=== PATIENT | male | born 1945 | race Caucasian/White ===

== ENCOUNTER 2019-12-15 01:08 | Observation (INO) | payer MEDICARE ==
[2019-12-15] MEDS ORDERED: methylPREDNISolone 125 MG* 2 ML VIAL IV ONE (01:17)
[2019-12-15] MEDS ORDERED: NS 0.9% 1000 ML** 1,000 ML IV ONE (01:17)
--- NOTE | 2019-12-15 01:21 | ED ---
Shortness of Breath - HPI Summary HPI Summary: 74-year-old male with a significant past medical history of COPD presents to the emergency Department today with chief complaint of influenza-like illness for the last 7 days with increased shortness of breath this evening. Patient states he has an oximeter at home and when he measured his oxygen saturation was evening it was approximately 82%. Patient has not taken any medication prior to arrival. Patient wears oxygen at home while sleeping at night. Patient was self diagnosed with influenza and has not taken Tamiflu. Patient is otherwise well and is alert and oriented 3 and resting comfortably on the hospital stretcher. Patient was given DuoNeb treatment by EMS. Patient otherwise feels well and denies current fever, abdominal pain, rash, nausea, vomiting, diarrhea, myalgia. - History of Current Complaint Chief Complaint: EDShortnessOfBreath Time Seen by Provider: 12/15/19 01:10 Hx Obtained From: Patient Onset/Duration: Gradual Onset Timing: Constant Current Severity: Moderate Alleviating Factors: Bronchodilators, EMS Tx, Oxygen, Upright Position Associated Signs & Symptoms: Cough (Productive) - Allergy/Home Medications Allergies/Adverse Reactions: Allergies Allergy/AdvReac Type Severity Reaction Status Date / Time No Known Allergies Allergy Verified 12/15/19 01:27 Home Medications: Home Medications Azithromycin 500 mg PO BID 12/15/19 [History Confirmed 12/15/19] PMH/Surg Hx/FS Hx/Imm Hx Infectious Disease History: No Infectious Disease History: Denies: Traveled Outside the [place] in Last 30 Days Review of Systems Positive: Fatigue Eyes: Negative ENT: Negative Cardiovascular: Negative Positive: Shortness Of Breath, Cough Gastrointestinal: Negative Genitourinary: Negative Positive: Myalgia Skin: Negative Neurological/Mental Status: Negative Psychological: Normal All Other Systems Reviewed And Are Negative: Yes Physical Exam Triage Information Reviewed: Yes Vital Signs On Initial Exam: Initial Vitals Temp Pulse Resp BP Pulse Ox 97.5 F 101 20 112/73 94 12/15/19 01:12 12/15/19 01:12 12/15/19 01:12 12/15/19 01:12 12/15/19 01:12 Vital Signs Reviewed: Yes Appearance: Positive: Well-Appearing, No Pain Distress, Well-Nourished Skin: Positive: Warm, Skin Color Reflects Adequate Perfusion Eyes: Positive: EOMI, JESUS ENT: Positive: Hearing grossly normal Respiratory/Lung Sounds: Positive: Breath Sounds Present, Decreased Breath Sounds, Wheezes Cardiovascular: Positive: RRR, S1, S2 Abdomen Description: Positive: Nontender, Soft Bowel Sounds: Positive: Present Musculoskeletal: Positive: Strength/ROM Intact Neurological: Positive: Sensory/Motor Intact, Alert, Oriented to Person Place, Time, Normal Gait, Facial Symmetry, Speech Normal Psychiatric: Positive: Normal, Affect/Mood Appropriate AVPU Assessment: Alert Procedures - Sedation Patient Received Moderate/Deep Sedation with Procedure: No Diagnostics - Vital Signs Vital Signs Temp Pulse Resp BP Pulse Ox 12/15/19 01:12 97.5 F 101 20 112/73 94 - Laboratory Result Diagrams: 12/15/19 01:25 12/15/19 01:25 Lab Statement: Any lab studies that have been ordered have been reviewed, and results considered in the medical decision making process. Course/Dx - Course Course Of Treatment: Patient was evaluated in the emergency department today for shortness of breath. Positive noted. Patient afebrile. EKG was done promptly which shows no evidence of STEMI. Sinus rhythm at a rate of 96 bpm. Normal axis. There is no T-wave inversion or evidence of ischemia. Normal MD and QTc interval. There are no priors available for comparison. Laboratory studies returned showing no leukocytosis with a white blood cell count of 5.2. CRP is elevated at 25.5. There are no electrolyte disturbances. Initial troponin resulted as 0.19. Hospitalist, Dr. Pate consulted at 0234 for admission the patient with a diagnosis of COPD exacerbation, pneumonia, elevated troponin. Patient was given 1 g of ceftriaxone and 500 mg of azithromycin IV for pneumonia. Patient admitted to [facility]. - Diagnoses Provider Diagnoses: COPD exacerbation, Pneumonia, Elevated troponin - Physician Notifications Discussed Care of Patient With: Cristin Pate - agreed to admit the patient with a diagnosis of COPD exacerbation, pneumonia, elevated troponin Instructed by Provider To: Admit As Inpatient Admit/Transition Orders Completed By ED Provider: No Discharge ED - Sign-Out/Discharge Documenting (check all that apply): Patient Departure - Discharge Plan Condition: Stable Disposition: ADMITTED TO [facility] Referrals: Mayuri Martines MD [Primary Care Provider] - - Billing Disposition and Condition Condition: STABLE Disposition: Admitted to [facility]
[2019-12-15 01:44] LABS: ABS Eosinophils 0.2 10^3/ul (0-0.6); ABS Lymphocytes 1.2 10^3/ul (1.0-4.8); ABS Monocytes 0.4 10^3/ul (0-0.8); ABS Neutrophils 3.3 10^3/ul (1.5-7.7); Eosinophil % 3.8 %; Hematocrit 40 % (42-52); Hemoglobin 13.9 g/dL (14.0-18.0); Lymphocyte % 22.9 %; Mean Corpuscular HGB Conc 35 g/dL (31-36); Mean Corpuscular Hemoglobin 33 pg (27-31); Mean Corpuscular Volume 93 fL (80-94); Platelet Count 146 10^3/uL (150-450); Red Blood Count 4.29 10^6 /uL (4.18-5.48); Red Cell Distribution Width 13 % (10-15); White Blood Count 5.2 10^3/uL (3.5-10.8)
[2019-12-15 02:00] LABS: Influenza A Molecular Negative (Negative); Influenza B Molecular Negative (Negative)
[2019-12-15 02:03] LABS: ALT 15 U/L (7-52); AST 17 U/L (13-39); Albumin 3.9 g/dL (3.2-5.2); Albumin/Globulin Ratio 1.4 (1-3); Alkaline Phosphatase 60 U/L (34-104); Anion Gap 6 mmol/L (2-11); BUN/Creatinine Ratio 20.5 (8-20); Blood Urea Nitrogen 16 mg/dL (6-24); CO2 Carbon Dioxide 30 mmol/L (22-32); Calcium 9.4 mg/dL (8.6-10.3); Chloride 103 mmol/L (101-111); EGFR African American 118.1 (>60); EGFR Non-African American 97.6 (>60); Globulin 2.7 g/dL (2-4); Glucose 114 mg/dL (70-100); Potassium 4.6 mmol/L (3.5-5.0); Sodium 139 mmol/L (135-145); Total Protein 6.6 g/dL (6.4-8.9)
[2019-12-15 02:07] LABS: Troponin I 0.19 ng/mL (<0.03)
[2019-12-15] MEDS ORDERED: Azithromycin 500 mg/250 ml NS 500 MG/250 ML BAG IVPB ONE (02:14)
[2019-12-15] MEDS ORDERED: cefTRIAXone(*) 1 GM in NS 0.9% 50 ML* 50 ML IVPB ONE (02:34)
[2019-12-15] MEDS ORDERED: Acetaminophen TAB* 325 MG PO PRN (03:24)
[2019-12-15] MEDS ORDERED: Albuterol/Ipratropium NEB.SOL* Albuterol 2.5 MG/Ipratropium 0.5 MG 3 ML INH PRN (03:24)
[2019-12-15] MEDS ORDERED: PROCHLORPERAZINE INJ 5 MG/ML 2 ML VIAL IV PRN (03:28)
[2019-12-15] MEDS: NS 0.9% 1000 ML** 1,000 ML IV SCH ×2 (05:56→09:22)
[2019-12-15] MEDS ORDERED: Enoxaparin(*) 40 MG/0.4 ML SYR SUBCUT SCH (06:00)
[2019-12-15 06:02] LABS: Troponin I 1.06 ng/mL (<0.03)
[2019-12-15] MEDS ORDERED: Aspirin TAB* 325 MG PO ONE (06:40)
[2019-12-15] MEDS ORDERED: Heparin DRIP 25,000 UNITS(*) 25,000 UNITS/500 ML BAG IV SCH ×2 (06:45→14:45)
[2019-12-15] MEDS ORDERED: Heparin VIAL(*) 5000 UNITS/ML VIAL (FIVE THOUSAND) IV SCH (07:00)
[2019-12-15 07:58] LABS: Troponin I 1.19 ng/mL (<0.03)
[2019-12-15] MEDS: Aspirin 81 mg CHEW TAB* 81 MG TAB.CHEW PO SCH (08:12)
[2019-12-15] MEDS: Cholecalciferol TAB* 1000 UNITS PO SCH (08:15)
[2019-12-15] MEDS: Cyanocobalamin TAB* 500 MCG PO SCH (08:15)
[2019-12-15] MEDS: Calcium Carbonate TAB* 1250 MG (CALCIUM 500 MG) PO SCH (08:15)
--- NOTE | 2019-12-15 08:41 | PN ---
Subjective Date of Service: 12/15/19 Interval History: Received call from RN that to request transfer to [facility] given Heparin drip was ordered due to increasing trop. Order placed. Repeat EKG ordered. Patient evaluated at bedside and denies cp, palpitations, nausea, vomiting, diaphoresis. He reports shortness of breath which was his chief complaint on admission. He continues to tell me his was sick recently and therefore when he started to have sob and cough 1 to 2 wks ago he figured he was getting a viral illness. He later (12/12) say his section housekeeper who placed him on abx. He reports his sob continued to worsen and he was "gasping for air" after walking to the bathroom at home, therefore, he came to the ED for evaluation. He is unable to tell me if he has had any improvement in since admission he reports "i have only been lying around". He continues to have cough. Objective Active Medications: Acetaminophen (Tylenol Tab*) 650 mg PO Q4H PRN PRN Reason: MILD PAIN or TEMP > 100.4 Albuterol/Ipratropium (Duoneb (Albuterol 2.5 Mg/Ipratropium 0.5 Mg)) 1 neb INH [id number] AWAKE PRN PRN Reason: sob/wheexing Aspirin (Aspirin 81 Mg Chew Tab*) 81 mg PO DAILY [facility] Last Admin: 12/15/19 08:12 Dose: 81 mg Calcium Carbonate (Calcium Carbonate Tab*) 1,250 mg PO DAILY [facility] Last Admin: 12/15/19 08:15 Dose: 1,250 mg Cholecalciferol (Vitamin D Tab*) 1,000 units PO DAILY [facility] Last Admin: 12/15/19 08:15 Dose: 1,000 units Cyanocobalamin (Vitamin B12 Tab*) 2,500 mcg PO DAILY [facility] Last Admin: 12/15/19 08:15 Dose: 2,500 mcg Heparin Sodium (Porcine) (Heparin Vial(*)) 0 units IV .PER PROTOCOL [facility] Azithromycin (Zithromax 500 Mg/250 Ml) 500 mg in 250 mls @ 250 mls/hr IVPB Q24H [facility] Ceftriaxone Sodium 1 gm/ (Sodium Chloride) 50 mls @ 100 mls/hr IVPB Q24H [facility] Sodium Chloride (Ns 0.9% 1000 Ml) 1,000 mls @ 100 mls/hr IV PER RATE [facility] Stop: 12/16/19 13:29 Last Admin: 12/15/19 05:56 Dose: 100 mls/hr Heparin Sodium/Dextrose (Heparin Drip 25,000 Units(*)) 25,000 units in 500 mls @ 0 mls/hr IV PER RATE [facility]; Protocol Mometasone Furoate/Formoterol Fumar (Dulera 200/5 Mdi*) 2 puff INH BID [facility] Prednisone (Deltasone 20 Mg Tab) 40 mg PO DAILY [facility] Last Admin: 12/15/19 08:15 Dose: 40 mg Prochlorperazine Edisylate (Compazine Inj*) 5 mg IV Q6H PRN PRN Reason: NAUSEA/VOMITING Vital Signs - 8 hr 12/15/19 12/15/19 12/15/19 01:12 01:43 01:46 Temperature 97.5 F Pulse Rate 101 95 Respiratory 20 13 Rate Blood Pressure 112/73 122/77 (mmHg) O2 Sat by Pulse 94 94 Oximetry 12/15/19 12/15/19 12/15/19 02:00 02:16 02:46 Temperature Pulse Rate 97 92 101 Respiratory 23 19 19 Rate Blood Pressure 102/71 97/67 (mmHg) O2 Sat by Pulse 94 94 95 Oximetry 12/15/19 12/15/19 12/15/19 03:00 03:16 03:46 Temperature Pulse Rate 105 101 97 Respiratory 25 24 21 Rate Blood Pressure 108/76 104/72 (mmHg) O2 Sat by Pulse 94 95 96 Oximetry 12/15/19 12/15/19 12/15/19 04:00 04:03 04:16 Temperature 97.5 F Pulse Rate 93 105 93 Respiratory 25 20 25 Rate Blood Pressure 104/72 108/68 (mmHg) O2 Sat by Pulse 95 95 96 Oximetry 12/15/19 12/15/19 04:57 07:15 Temperature 97.8 F 97.7 F Pulse Rate 95 92 Respiratory 20 24 Rate Blood Pressure 112/67 119/70 (mmHg) O2 Sat by Pulse 94 96 Oximetry Oxygen Devices in Use Now: Nasal Cannula Appearance: Mild dyspnea with conversing. Eyes: No Scleral Icterus Ears/Nose/Mouth/Throat: Clear Oropharnyx, Mucous Membranes Moist Neck: NL Appearance and Movements; NL JVP Respiratory: - - Mild dyspnea with conversing. Expir Wheeze. Cardiovascular: NL Sounds; No Murmurs; No JVD, RRR, No Edema Abdominal: NL Sounds; No Tenderness; No Distention Lymphatic: No Cervical Adenopathy Extremities: No Edema Skin: No Rash or Ulcers Neurological: Alert and Oriented x 3 Nutrition: Taking PO's Result Diagrams: 12/15/19 01:25 12/15/19 01:25 Additional Lab and Data: Laboratory Results - last 24 hr 12/15/19 12/15/19 12/15/19 01:25 01:25 01:25 WBC 5.2 RBC 4.29 Hgb 13.9 L Hct 40 L MCV 93 MCH 33 H MCHC 35 RDW 13 Plt Count 146 L MPV 9.0 Neut % (Auto) 64.0 Lymph % (Auto) 22.9 Drew % (Auto) 8.4 Eos % (Auto) 3.8 Baso % (Auto) 0.9 Absolute Neuts (auto) 3.3 Absolute Lymphs (auto) 1.2 Absolute Monos (auto) 0.4 Absolute Eos (auto) 0.2 Absolute Basos (auto) 0.0 Absolute Nucleated RBC 0.0 Nucleated RBC % 0.0 Sodium 139 Potassium 4.6 Chloride 103 Carbon Dioxide 30 Anion Gap 6 BUN 16 Creatinine 0.78 Est GFR ( Amer) 118.1 Est GFR (Non-Af Amer) 97.6 BUN/Creatinine Ratio 20.5 H Glucose 114 H Lactic Acid 1.0 Calcium 9.4 Total Bilirubin 0.30 AST 17 ALT 15 Alkaline Phosphatase 60 Troponin I 0.19 H* C-Reactive Protein 25.50 H Total Protein 6.6 Albumin 3.9 Globulin 2.7 Albumin/Globulin Ratio 1.4 Influenza A (Rapid) Influenza B (Rapid) 12/15/19 12/15/19 12/15/19 01:25 05:09 07:08 WBC RBC Hgb Hct MCV MCH MCHC RDW Plt Count MPV Neut % (Auto) Lymph % (Auto) Drew % (Auto) Eos % (Auto) Baso % (Auto) Absolute Neuts (auto) Absolute Lymphs (auto) Absolute Monos (auto) Absolute Eos (auto) Absolute Basos (auto) Absolute Nucleated RBC Nucleated RBC % Sodium Potassium Chloride Carbon Dioxide Anion Gap BUN Creatinine Est GFR ( Amer) Est GFR (Non-Af Amer) BUN/Creatinine Ratio Glucose Lactic Acid Calcium Total Bilirubin AST ALT Alkaline Phosphatase Troponin I 1.06 H* 1.19 H* C-Reactive Protein Total Protein Albumin Globulin Albumin/Globulin Ratio Influenza A (Rapid) Negative Influenza B (Rapid) Negative Microbiology and Other Data: Microbiology 12/15/19 04:00 Streptococcus pneumoniae Ag Screen - Final Urine Negative S. pneumo Antigen Assess/Plan/Problems-Billing Assessment: 74 yr old male with pmh of copd whp presented to ed with sob - Patient Problems (1) Pulmonary emboli Comment: - CTA revealed bilateral subsegmental pulmonary emboli in bilateral lower lobes - Currently on Heparin drip PE protocol. - Transition to PO AC tomorrow - Ultrasound of Bilat LE ordered. - Will need outpatient workup for cause of PE as it appears unprovoked. (2) Elevated troponin Comment: - Trop 0.19 on admission. Peaked at 1.21. Now 1.06 - Patient was started on Heparin Drip and ASA by overnight provider after consulting cardiology. - No chest pain, palpitations, diaphoresis. - No concerning EKG findings. - Discussed with Dr Elizondo. Will continue Heparin drip until trop peaks (but since patient's CTA revealed PEs will continue Heparin drip until transition to PO AC tomorrow). - Plan for echo tuesday/tuesday - Likely secondary to demand ischemia from COPD exacerbation and PE (3) SOB (shortness of breath) Comment: - Likely multifactorial: PE and COPD - CTA revealed bilateral subsegmental pulmonary emboli in bilateral lower lobes - Reports he is unable to determine improvement since he has not been ambulating - Cont supplemental O2, nebulizers, abx, inhalers steriods - Wheezing (4) Hypoxia Comment: - Requiring 2L to maintain saturation. At home only wears supplemental oxygen at night and does not require it during the day - Likely secondary to COPD exacerbation and/or PE (5) COPD (chronic obstructive pulmonary disease) Comment: - Cont abx, steriods, inhalers, nebulizers - Requiring increasing supplemental oxygen need compared to home oxygen rate (6) Full code status (7) DVT prophylaxis Comment: - Heparin drip currently Attending: Adolfo Douglas
--- NOTE | 2019-12-15 08:55 | HP ---
AMENDED REPORT NOW INCLUDES DESIGNATED COSIGNER - ESIGNED BEFORE ADJUSTMENTS ADMISSION HISTORY AND PHYSICAL: DATE OF ADMISSION: 12/15/19 PRIMARY CARE PHYSICIAN: Dr. Martines. PROVIDER: Baltazar Trinidad NP. ATTENDING PHYSICIAN: Dr. Pate.* (DICTATED BY BALTAZAR TRINIDAD NP) CHIEF COMPLAINT: Shortness of breath. HISTORY OF PRESENT ILLNESS: This is a 74-year-old male with a past medical history significant for COPD with 2 L via nasal cannula at night, vitamin B12 deficiency, and bilateral PEs, who came to the emergency room on 12/15/19 after noticing for the past 2 days his oxygen level was low. He started feeling ill last Tuesday. He walked 6 miles that night, but noted that he was more short of breath than usual and that sensation only progressed throughout the week. He went to his pulmonology appointment on Tuesday, at which point he was prescribed azithromycin for pneumonia. He rested, has had low appetite, has denied any fever or chills, but yesterday he woke up and checked his oxygen levels in the morning, which he does not typically do, and was in the mid 80s. He knew that that was out of the ordinary for himself but did not seek any medical help and just laid low for the day. This past evening, he increased his oxygen level to 3 liters. He had to walk to the bathroom that is further away from his room than he typically does and he was really short of breath and uncomfortable after that walk, and his oxygen level at that time on room air was 79% which precipitated him coming to the emergency room. He also has reported feeling off and on lightheaded since Tuesday. In the emergency room, he received a liter of IV fluids, labs were drawn, chest x-ray was done, and his CURB score was 1. They were going to discharge him home but his troponin came back at 0.19, at which point the hospitalists were asked to evaluate the patient for admission. His HEART score is 4, but he denies any chest pain, tightness, or pressure. PAST MEDICAL HISTORY: COPD with 2 liters of oxygen via nasal cannula at nighttime, vitamin B12 deficiency, and bilateral PEs in 2010. PAST SURGICAL HISTORY: None. HOME MEDICATIONS: 1. Albuterol 1 puff every 4 hours as needed for shortness of breath. 2. Vitamin B12 2500 mcg p.o. daily. 3. Calcium carbonate 1 tab p.o. daily. 4. Vitamin D3 1000 mg p.o. daily. 5. PreserVision AREDS 2 two caps p.o. daily. 6. Aspirin 81 mg p.o. daily. 7. Fluticasone/salmeterol 250/500 one puff inhalation twice a day. 8. Tadalafil unknown dosage once daily. ALLERGIES: None. FAMILY HISTORY: Mother at age 78 from pancreatic cancer and his father at 98 due to "old age." SOCIAL HISTORY: He has got an [id number] history that ended in 2005. He drinks 2 glasses of wine with dinner at night and occasionally also will have a cocktail. Denies any recreational substances. 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 He is and has 1 child. He makes a habit of walking about 6 miles a day, though has not done so this past week. REVIEW OF SYSTEMS: A 12-point system review was performed, which was positive for shortness of breath at rest, cough. Negative for fever, chills, chest pain , pressure, palpitations, abdominal pain, nausea, vomiting, or issues moving his bowel or bladder. PHYSICAL EXAMINATION GENERAL: This is a well-developed older gentleman seen resting in the bed, in moderate distress, performing pursed lip breathing and shortness of breath with talking. VITAL SIGNS: 97.5 Fahrenheit, 100 pulse, 24 respirations, 95% oxygen on 3 L, 108/76 blood pressure. HEENT: Conjunctivae pink and moist. PERRLA. EOMs intact. Oropharynx clear. Mucous membranes slightly dry. NECK: Supple. RESPIRATORY: Lung sounds diminished in the bases bilaterally, otherwise clear on 3 liters of oxygen via nasal cannula. CARDIAC: S1 and S2 present. Heart rate regular. No murmurs, gallops, or rubs appreciated, though is tachycardic. ABDOMEN: Soft, nontender, and nondistended with positive bowel sounds x4. MUSCULOSKELETAL: No clubbing or cyanosis of the digits. Full range of motion of the lower extremities. SKIN: Intact with no rashes or open areas. NEUROLOGIC: Sensation is intact to light touch, moves all extremities. PSYCH: He is alert and oriented x3. Thought content organized. PERTINENT LABORATORY DATA: BUN and creatinine ratio of 20.5, glucose 114, lactic acid 1.0, troponin 0.19, C-reactive protein 25.5, hemoglobin 13.9, hematocrit 40, MCH 33, platelet count 146. Negative for influenza A or B. DIAGNOSTIC STUDIES: I am still awaiting official radiologic read; however, chest x- ray appears to have some infiltrates in the left middle and lower lobe. ASSESSMENT AND PLAN: My impression; this is a 74-year-old male with past medical history significant for chronic obstructive pulmonary disease, who was admitted on 12/15/19 for left lobe pneumonia and chronic obstructive pulmonary disease exacerbation. 1. Pneumonia. As an outpatient, he has taken azithromycin 500 mg once daily since . I will continue him on IV azithromycin here as well as add in ceftriaxone 1 g daily. The patient declined the need for any expectorant, declined use of flutter valve. We will order maintenance IV fluids, normal saline at 75 mL an hour for 2 bags. His CURB score is 1. He is afebrile and without leukocytosis. Does not meet criteria for sepsis. 2. Chronic obstructive pulmonary disease exacerbation as evidenced by the demand for 3 L of oxygen to maintain sats above 90, whereas he normally only wears 2 L at nighttime. DuoNeb ordered as needed. He had 1 treatment in the emergency room as well as 1 dose of IV methylprednisolone. We will order burst dosing of prednisone 40 mg for 5 days. Continue the fluticasone/salmeterol inhaler. 3. Elevated troponin. Troponin initially was 0.19. I have no previous data to compare this against, though I feel that this is likely due to some degree of dehydration and demand secondary to pneumonia. We will trend troponins every 3 hours until they decrease. 4. Vitamin B12 deficiency. The patient stated this is a recent diagnosis for him. We will continue with vitamin B12 supplementation. 5. DVT prophylaxis: Initiate Lovenox. 6. Code status is full code. 7. Condition is guarded. DISPOSITION: Admit OBV to [address] [place] [address]. TIME SPENT: Time spent on the patient is about 50 minutes with 30 of that spent [id number]. BALTAZAR TRINIDAD, TAX SERVICES MANAGER [id number]/[facility] #: [id number] [facility]
[2019-12-15] MEDS: Mometasone/Formoter 200/5 MDI INH SCH ×2 (09:18→20:05)
[2019-12-15] MEDS ORDERED: Iohexol 350* (CONTRAST) 500 ML MDV IV ONE (10:18)
[2019-12-15 10:49] LABS: Troponin I 1.21 ng/mL (<0.03)
[2019-12-15 15:25] LABS: Troponin I 1.06 ng/mL (<0.03)
[2019-12-15 18:44] LABS: Troponin I 0.89 ng/mL (<0.03)
[2019-12-16] MEDS ORDERED: cefTRIAXone(*) 1 GM in NS 0.9% 50 ML* 50 ML IVPB SCH (02:00)
[2019-12-16] MEDS ORDERED: Azithromycin 500 mg/250 ml NS 500 MG/250 ML BAG IVPB SCH (03:00)
[2019-12-16 05:16] LABS: ABS Lymphocytes 1.5 10^3/ul (1.0-4.8); ABS Monocytes 0.7 10^3/ul (0-0.8); ABS Neutrophils 7.1 10^3/ul (1.5-7.7); Eosinophil % 0.1 %; Hematocrit 40 % (42-52); Hemoglobin 13.6 g/dL (14.0-18.0); Lymphocyte % 15.9 %; Mean Corpuscular HGB Conc 34 g/dL (31-36); Mean Corpuscular Hemoglobin 32 pg (27-31); Mean Corpuscular Volume 94 fL (80-94); Mean Platelet Volume 8.4 fL (7.4-10.4); Platelet Count 175 10^3/uL (150-450); Red Blood Count 4.22 10^6 /uL (4.18-5.48); Red Cell Distribution Width 13 % (10-15); White Blood Count 9.3 10^3/uL (3.5-10.8)
[2019-12-16 05:30] LABS: Calcium 9.3 mg/dL (8.6-10.3); EGFR African American 123.5 (>60); EGFR Non-African American 102.1 (>60); Potassium 4.9 mmol/L (3.5-5.0)
[2019-12-16] MEDS: Mometasone/Formoter 200/5 MDI INH SCH (07:29)
[2019-12-16] MEDS: Calcium Carbonate TAB* 1250 MG (CALCIUM 500 MG) PO SCH (08:22)
[2019-12-16] MEDS: Cyanocobalamin TAB* 500 MCG PO SCH (08:22)
[2019-12-16] MEDS: Cholecalciferol TAB* 1000 UNITS PO SCH (08:22)
[2019-12-16] MEDS: Aspirin 81 mg CHEW TAB* 81 MG TAB.CHEW PO SCH (08:22)
[2019-12-16] MEDS: Apixaban* 5 MG TAB PO SCH ×2 (08:34→11:32)
[2019-12-16 12:47] VITALS: BP 140/58
--- NOTE | 2019-12-17 01:41 | DS ---
CC: Dr. Mayuri Martines; Dr. Hancock * DISCHARGE SUMMARY: DATE OF ADMISSION: 12/15/19 DATE OF DISCHARGE: 12/16/19 PRIMARY CARE PROVIDER: Dr. Mayuri Martines. MY ATTENDING WHILE IN THE HOSPITAL: Dr. Richi Astorga.* (PHIL GORDON) OUTPATIENT PACKAGING ASSOCIATE: Dr. Hancock. PRIMARY DISCHARGE DIAGNOSES: 1. [id number] hypoxic respiratory failure. 2. Pulmonary embolism. 3. Elevated troponin. 4. Possible chronic obstructive pulmonary disease exacerbation. SECONDARY DISCHARGE DIAGNOSES: 1. Severe chronic obstructive pulmonary disease with chronic hypoxic respiratory failure, on 2 L at night. 2. Vitamin B12 deficiency. STUDIES DONE WHILE IN THE HOSPITAL: Chest x-ray from 12/15/19, read as pneumonia versus left atelectasis of the posterior right lung base and background obstructive pulmonary disease. Electrocardiogram from 12/15/19, read as rate of 96, QTc of 454, normal axis. No ST segment elevation or depression. No hypertrophy or enlargement. Normal R-wave progression. No previous study to compare. Repeat EKG shows no significant changes. Chest thorax CTA from 12/15/19, read as positive subsegmental pulmonary emboli in the bilateral lower lobes. Appearance was consistent with emphysema, incidentally noted aberrant right subclavian artery. Venous Doppler study of bilateral lower extremities from 12/15/19, read as no acute findings and no evidence of deep vein thrombosis. MEDICATIONS AT DISCHARGE: 1. Albuterol sulfate inhaler 1 puff inhalation as needed for shortness of breath. 2. Apixaban 10 mg p.o. b.i.d. 3. Calcium carbonate 1250 mg p.o. daily. 4. Vitamin D 1000 mg p.o. daily. 5. Vitamin B12 1500 mcg p.o. daily. 6. Wixela 250/50 inhaler 1 puff inhalation b.i.d. 7. Prednisone 4 mg p.o. daily x2 more doses. New medications at discharge: 1. Prednisone. 2. Eliquis. Medications discontinued at discharge: 1. Azithromycin 500 mg p.o. b.i.d. HOSPITAL COURSE: This is a brief summary of the patient's presentation. For more details, please see the history and physical from Evelyn Trinidad NP, on . In brief, the patient is a 74-year-old male with past medical history significant for the above, who has had bilateral PEs diagnosed in 2010 at [facility] in [place], who had been noticing worsening shortness of breath, starting on 12/08/19. The patient went to pulmonology appointment, was noted to be tachypneic, but no wheezing was noted. At that time, the patient was started on azithromycin. The patient, on the day before his admission, went and checked his oxygen levels and they were noted to be in the mid 80s and he increased his oxygen saturation but then noticed after a walk that his oxygen saturation was only 79%. The patient came into the emergency department, was initially presumptively diagnosed with pneumonia based on his above chest x-ray findings; however, the patient was noted to have an elevated troponin, which went from 0.19 on admission up to a peak of 1.21. The patient had at no point chest pain. He just complained of worsening shortness of breath on exertion. The patient was not noted to be wheezing upon presentation , did have an increased harsh cough. The patient was started on heparin drip on the morning of 12/15/19 due to findings of pulmonary emboli, bilateral lower lobes. The patient was also treated with antibiotics and prednisone. The patient was noted on 12/15/19 to have a mild expiratory wheeze. The patient, on the morning of 12/16/19, was being transitioned from his heparin drip to a NOAC when he began to question the veracity of his diagnosis of pulmonary emboli bleeding, this was related to his previous pulmonary emboli. The patient on that morning was not wheezing. The patient has no evidence of pneumonia on the official report from his CTA note from this author's interpretation. The patient does have noted scarring on his x-rays from approximately 10 years ago in the lower lobes, possibly explaining his infiltrates on chest x-ray though atelectasis may also explain this. The patient was initially hesitant to take the Eliquis, but after significant explanation from this provider and comparison of his records from his CTA, 2 of those of [facility] 10 years ago, which showed significantly different distribution of pulmonary emboli on the previous CTA and explanation that the D- dimer test that he states he had at 7 months' followup from his pulmonary embolism, which was reportedly negative, very significantly decreased the probabilities. 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 The patient's troponin had peaked at 1.21 and began to trend down on 12/15/19. The patient's vital signs were stable on 2 L of oxygen. The patient was initially tachycardic, but had no more tachycardia. The patient's blood pressure was initially somewhat low, but would then stay within the normal range. The patient was adamant that he would not stay for an echocardiogram on 12/17/19 when it is available, and the patient was stable, amenable for discharge to home on anticoagulation on 12/16/19, with close followup with an echocardiogram and his primary care provider with whom this case was discussed. PHYSICAL EXAM ON THE DAY OF DISCHARGE: General: The patient is a 74-year-old male, who appears stated age, sitting in the bed with slightly increased work of breathing, in no acute distress. Vital Signs: At the time of discharge, temperature 97.5, pulse rate 81, respiratory rate 24, oxygen saturation 97% on 2 L, blood pressure 140/58. HEENT: Head is normocephalic, atraumatic. Sclerae anicteric. No conjunctival injection. Nasal mucosa moist. Oral mucosa moist. No pharyngeal erythema, discharge or exudate. Neck: Supple, nontender. No lymphadenopathy. No carotid bruits. No JVD. Cardiac: Regular rate and rhythm. No clicks, murmurs, gallops or rubs. Pulses are 2+ in the bilateral dorsalis pedis, posterior tibialis, and radial areas. Respiratory: No adventitious lung sounds diminished throughout. Abdomen: Soft, nontender, nondistended. Bowel sounds present and normoactive in all 4 quadrants. No hepatospleno-megaly. No abdominal bruits auscultated. No hepatojugular reflux. Genitourinary: No suprapubic or CVA tenderness. Skin: Clean, dry, and intact. No rash. No bilateral lower extremity edema noted. Neuro: Cranial nerves II through XII intact. Alert and oriented x3. DISCHARGE PLAN BY PROBLEM: 1. Acute pulmonary emboli. The patient's symptoms are most likely explainable by his bilateral lower lobes subsegmental pulmonary emboli given his shortness of breath with exertion, his elevated troponin, his lack of significant wheezing on exam, and his history of pulmonary embolism. The patient's Wells score calculated based on his initial presentation taking into the account the subjective component of PE being the number one diagnosis or equally likely and his increase in activity prior to the admission. The patient's pretest probability for his pulmonary embolism was 40.6% chance. Decreasing the chance is related to a chronic pulmonary embolism and an alternative diagnosis causing acute symptoms. This was explained to the patient and he was agreeable to anticoagulation even though this is a second pulmonary embolism, he is not interested in indefinite anticoagulation and we will assess it on an ongoing basis of the appropriateness of is anticoagulation therapy with his primary care provider. The patient was started on Eliquis 10 mg b.i.d. This should be decreased per usual protocol to 5 mg twice daily after 7 days. The patient was initially anticoagulated and therapeutic while in the hospital on a heparin drip. The patient has been instructed that given his elevated troponin and likely strain of his right ventricle that looks intense exercise at this time may be more harmful and good for his pulmonary status. He understands and will not return immediately to his normal level of functioning. The patient has been scheduled for an outpatient echocardiogram, which will be discussed with his outpatient provider closely at discharge. We discussed the level of right ventricular strain and for baseline for ongoing monitoring. 2. Severe chronic obstructive pulmonary disease, possible mild exacerbation. The patient on the day of discharge was not wheezing; however, he was noted to be wheezing while inpatient and did have an increased nonproductive cough. This may be related to his pulmonary embolism; however, the patient was started on steroids while inpatient and this will be continued for 2 additional days for a burst on discharge. The patient should continue with his chronic inhalers and consideration should made for adding on a long-acting muscarinic agonist for triple inhaler therapy given his severe disease and he should continue his albuterol inhaler as needed. 3. Vitamin B12 deficiency. Continue the patient's B12 supplementation. 4. Initial presumptive diagnosis of pneumonia. The patient was initially diagnosed with pneumonia given that there is no evidence on his CTA in addition to having no elevated white blood cell count, no productive cough, and alternative explanation for his symptoms. The patient's antibiotics were discontinued on 12/16/19 and he was not sent home on any. The patient received a total of 5 days of azithromycin for his initial presumptive diagnosis of chronic obstructive pulmonary disease exacerbation through his interventional cardiologist. DISPOSITION: Home. CONDITION: Stable. TIME SPENT: Approximately 90 minutes was spent on the discharge of this patient , 60 of which was spent [id number] with the patient obtaining history and physical and discussing treatment plan. PHIL GORDON [id number]/CPS #: [id number]
== END 2019-12-16 13:50 | disposition home or self-care (01) ==
LOC: ED 01:08 → MED 03:24 → MEDTELE 08:38
PROVIDERS: ADMIT Student in an Organized Health Care Education/Training Program; ATTEND Internal Medicine
DX: J96.21 Acute and chronic respiratory failure with hypoxia (principal); I26.99 Other pulmonary embolism without acute cor pulmonale; R74.8 Abnormal levels of other serum enzymes; J44.9 Chronic obstructive pulmonary disease, unspecified; E53.8 Deficiency of other specified B group vitamins; Z79.01 Long term (current) use of anticoagulants; Z79.899 Other long term (current) drug therapy; Z79.82 Long term (current) use of aspirin; Z87.891 Personal history of nicotine dependence; R94.31 Abnormal electrocardiogram [ECG] [EKG]
CPT/HCPCS: 36415; 71046; 71275; 80048; 80053; 83605; 84484; 85025; 85730; 86140; 87899; 93005; 93970; 94640; 96361; 96365; 96366; 96372; 96375; 99284; A9270-GY; G0378; J0456; J0696; J1644; J2930; J7512; Q9967